=== PATIENT | female | born 1980 | race Caucasian/White ===

== ENCOUNTER → 2022-02-02 | Outpatient (CLI) | payer SELFPAY ==
[~2022-02-02] MED LIST: ABAC300; ACETAMINOPHEN500 MG PO; ALLERGY SHOTS; Bactrim Ds Tab1 EACH PO; CETI1SY PO; COMBIVENT RESPIM4 GM; DIPH50 PO; ESTNOR PO; FAMO20 PO; HYDHCL25 PO; IBUP400 PO; IBUP800; LEVO750 PO; NASACORT10.8 ML NS; OXYACE5T PO; PRED10; PRED20 PO; PROM25; RANI150 PO; RXHYD5325 PO; SULF10OPO OP; Zofran Odt4 MG SL; [UNRECOGNIZED DRUG - REMARK] PO
[2022-02-03 16:54] LABS: Adenovirus F 40/41 Not Detected (NOT DETECT); Astrovirus Not Detected (NOT DETECT); Campylobacter Sp Not Detected (NOT DETECT); Cryptosporidium Not Detected (NOT DETECT); Cyclospora Cayetanensis Not Detected (NOT DETECT); E. Coli O157 Not Detected (NOT DETECT); Entamoeba Histolytica Not Detected (NOT DETECT); Enteroaggregative E. coli-EAEC Not Detected (NOT DETECT); Enteropathogenic E. coli-EPEC Detected (NOT DETECT); Enterotoxigenic E. coli-ETEC Not Detected (NOT DETECT); Giardia Lamblia Not Detected (NOT DETECT); Norovirus GI/GII Not Detected (NOT DETECT); Plesiomonas Shigelloides Not Detected (NOT DETECT); Rotavirus A Not Detected (NOT DETECT); Salmonella Sp Not Detected (NOT DETECT); Sapovirus Not Detected (NOT DETECT); Shiga Toxin-prod E. coli-STEC Not Detected (NOT DETECT); Shigella/Enteroin E. coli-EIEC Not Detected (NOT DETECT); Vibrio Cholerae Not Detected (NOT DETECT); Vibrio Sp Not Detected (NOT DETECT); Yersinia Enterocolitica Not Detected (NOT DETECT)
[2022-02-04 09:16] LABS: Stool Occult Bld Immuno 1 Negative (NEGATIVE)
== END | disposition home or self-care (01) ==
LOC: LAB SHORT 20:55 → LAB FUT 02-02 16:30
PROVIDERS: Nurse Practitioner Family
DX: E03.9 Hypothyroidism, unspecified (principal); N95.9 Unspecified menopausal and perimenopausal disorder; G47.00 Insomnia, unspecified; Z83.3 Family history of diabetes mellitus; R45.86 Emotional lability; R53.83 Other fatigue; Z79.899 Other long term (current) drug therapy
CPT/HCPCS: 87507; G0328